=== PATIENT | male | born 1960 | race Caucasian/White ===

== ENCOUNTER 2020-03-10 08:37 | Inpatient (IN) ==
--- NOTE | 2020-02-28 16:14 | Anesthesiology Consultation ---
Date of Service February 28, 2020 Assessment & Plan (1) Encounter for pre-operative examination: Chart Review Chart Review: Acceptable Risk for Surgery (pending Covid testing results ) and Patient NOT seen in Pre Admission Testing Pt resides in [facility]. Will be getting Covid testing through surgeon's office on 03/06/20- will await results before final clearance on patient. History Surgery Operation Date: 03/11/20 09:30 Proposed Procedures p Right Total Knee Arthroplasty, - Flavio Marrero MD s Removal of Deep Screws - Flavio Marrero MD Height/Weight Height: 5 ft 8 in Weight: 68.946 kg Allergies Allergy/AdvReac Type Severity Reaction Status Date / Time celecoxib [From Celebrex] Allergy Mild Rash Verified 02/28/20 13:10 Medications Home Medications Medication Instructions Recorded Confirmed Last Taken fluticasone propionate [Flonase 2 spray INTRANASAL DAILY PRN 12/23/19 02/28/20 Unknown Allergy Relief] ibuprofen 200 - 600 mg PO DAILY PRN 12/23/19 02/28/20 Unknown Past Medical History Medical History Arthritis Past Family History Family History Other No significant family history Past Surgical History Surgical History History of colonoscopy History of surgery LEFT QUAD Hx of arthroscopic knee surgery X3 Hx of shoulder surgery RIGHT ROTATOR CUFF Social History Smoking Status: Current some day smoker tobacco type: cigars Smoking cigarettes per day: WILL SMOKE OCCAS. CIGAR (NOT EVERYDAY) Do You Dip or Chew Tobacco: No Hx Alcohol Use: Yes Alcohol type: beer alcohol intake frequency: 0-2 drinks per day Hx Substance Use: No substance use type: does not use Testing Laboratory Results 02/24/20= WBC: 5.32 H/H: 14.6/42.9 PLATELETS: 215 SODIUM: 137 POTASSIUM: 3.6 CHLORIDE: 101 CO2: 28 BUN: 15 CREATININE: 0.85 GLUCOSE: 78 PT: 9.9 INR: 0.9 UA: Neg Electrocardiogram Date: 12/30/19 Findings: + SB @ (52bpm) RBBB. Chest X-Ray Date: 12/30/19 Findings: + NAD
--- NOTE | 2020-03-06 15:54 | History & Physical Report ---
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 Plan: Postoperative prescriptions for Percocet and Coumadin will be provided at discharge from the hospital. Anticipate discharge to home with home health services. He will have someone stay with him. Preoperative lab work, EKG, and chest x-ray have been obtained. He has also obtained medical clearance from his family doctor, Dr. Leavitt. He has crutches already. Prescription has been provided for a walker. The patient is asymptomatic of any COVID-19 symptoms. He is aware of COVID-19 risks associated with surgery. He has had testing for COVID-19 and results will be made available. History of Present Illness Chief Complaint: Right knee pain Primary Care Provider: Cliff Leavitt MD This 59-year-old white male presents to the office with a longstanding history of right knee pain. He has had numerous previous injuries and surgeries. He developed pain in the fall 2018. He did receive some cortisone injections as well as tried activity modification without improvement. He underwent right knee arthroscopy with chondroplasty and partial medial and lateral meniscectomies in July 2019 at another facility. His pain has become worse since having the knee scope. He is ambulating using a cane. He has tried extensive physical therapy without improvement. He notes occasional swelling in the knee. There is night pain. There is difficulty with motion. He ambulates with an antalgic gait. Pain is worse with weightbearing and is affecting his ADLs. Pain is global but worse medially. Going up and down stairs does aggravate the pain. He elects to proceed with surgical intervention after being educated about potential risks and outcomes. He is scheduled for elective right total knee arthroplasty and removal of deep screws on 03/10/2020. Allergies Allergy/AdvReac Type Severity Reaction Status Date / Time celecoxib [From Celebrex] Allergy Mild Rash Verified 02/28/20 13:10 Home Medications Home Medications Medication Instructions Recorded Confirmed Type fluticasone propionate [Flonase 2 spray INTRANASAL DAILY PRN 12/23/19 02/28/20 History Allergy Relief] ibuprofen 200 - 600 mg PO DAILY PRN 12/23/19 02/28/20 History Past Med/Surg History Medical History (Updated 03/06/20 @ 16:05 by Milton Beck PA-C) Arthritis Colon polyps Epididymitis Hemorrhoids Surgical History (Updated 03/06/20 @ 15:51 by Milton Beck PA-C) History of colonoscopy History of surgery LEFT QUAD Hx of arthroscopic knee surgery X3 Hx of reconstruction of anterior cruciate ligament tear Hx of shoulder surgery RIGHT ROTATOR CUFF Family History Father Hypertension Other No significant family history Social History Preferred Language: Nicaraguan Communication Ability: Effective Lease Administration Supervisor Required: No Beliefs That Will Affect Care: None Current Living Situation: Alone Feels Safe at Home: Yes Safety Concerns: Feels Safe At This Time Smoking Status: Current some day smoker Tobacco Type: cigars ; Cigarettes Per Day: WILL SMOKE OCCAS. CIGAR (NOT EVERYDAY) ; Do You Dip or Chew Tobacco: No ; Second Hand Exposure: No ; Tobacco Cessation Education Requested by Patient: No Hx Alcohol Use: Yes Alcohol type: beer Hx Substance Use: No Review of Systems Review of Systems: A total of 10 systems are reviewed and are significant only for above-stated conditions. Physical Exam Physical Exam: Vitals: Height 171 cm, weight 71 kg, BMI 24.3. Temperature 36.4 oral, BP 138/82, pulse 49, O2 sat 99% on room air. General: Well-developed, well-nourished, middle-aged white male, in no acute distress. Sitting in a chair. Alert and oriented. Skin: Warm and dry with good turgor. No rashes or lesions. No ecchymosis or erythema. No intra-articular effusion. HEENT: Normocephalic, atraumatic. Eyes: PERRLA, EOMI. Nares patent bilaterally without turbinate enlargement. Oropharynx deferred. Heart: RRR, no MGR. Lungs: Clear to auscultation bilaterally, no crackles, rhonchi, or wheezing. Good air movement. Abdomen: Soft, nontender. No organomegaly. No masses. Bowel sounds present x4. Musculoskeletal: Right knee evaluation reveals no intra-articular effusion. Previous incisional scars are noted. Full terminal extension. Flexion to greater than 100 degrees. Strength is 5/5 with good quad tone. Ambulates with an antalgic gait. Stable collateral ligaments. No defect in the patellar tendon or quadriceps tendon. He has focal discomfort with palpation over the medial and lateral joint lines. He is able to perform a straight leg raise. Neurologic: Gross sensation is intact across both lower extremities by soft touch. Peripheral pulses are 2+. Results & Data Results & Data ([facility]) Diagnostic Findings Radiographic imaging previously obtained shows end-stage DJD with lateral tibial subluxation. Subchondral sclerosis and osteophyte formation are also present. Old ACL screws are present.
[~2020-03-10 08:37] MED LIST: BUPIVACAINE 0.5 % 5 MG/1 ML PF 10ML VIAL ONE; CEFAZOLIN 2000MG 2,000 MG/15 ML SYR IV SCH; LR 500ML BOLUS, THEN 15ML/HR IV SCH; LR 60ML/HR IV SCH; ROPIVACAINE 0.5% 5 MG/ML 30 ML VIAL ONE; TRANEXAMIC ACID 1,000 MG **IV Pre-op IV SCH
[2020-03-10] MEDS ORDERED: MIDAZOLAM HCL 1 MG/ML 2ML VIAL ONE ×2 (09:10)
[2020-03-10] MEDS ORDERED: PROPOFOL IV EMULSION 10 MG/ML 20 ML VIAL IV ONE ×2 (09:18→11:26)
[2020-03-10] MEDS ORDERED: fentaNYL citrate 100 MCG/2 ML VIAL ONE (09:18)
[2020-03-10] MEDS ORDERED: ROPIVACAINE 0.5% HCL/PF 150 MG, BUPIVACAINE 0.5% MPF 30 ML, EPINEPHrine 0.15 MG, Ketoro... INFIL SCH (09:30)
--- NOTE | 2020-03-10 09:31 | History & Physical Bridge Note ---
Date of Service March 10, 2020 History & Physical Bridge Note I have examined the patient, reviewed the History & Physical and in the interval since the performance of the History & Physical I have noted the following changes of clinical significance: consent verified/covid test negative.using remote computer to decrease exposure.no changes noted
[2020-03-10] MEDS ORDERED: ONDANSETRON INJ 2 MG/ML 2 ML VIAL IV PRN ×2 (10:28→12:41)
[2020-03-10] MEDS ORDERED: ATROPINE SULFATE 0.1 MG/ML 10ML SYR IV PRN (10:28)
[2020-03-10] MEDS ORDERED: ePHEDrine sulfate 50 MG/ML AMP IV PRN (10:28)
[2020-03-10] MEDS ORDERED: HYDROmorphone INJ 1 MG/ML SYRINGE IV PRN (10:28)
[2020-03-10] MEDS ORDERED: ORTHO JOINT ANESTHETIC ONE (10:53)
[2020-03-10] MEDS ORDERED: ONDANSETRON INJ 2 MG/ML 2 ML VIAL ONE (11:16)
--- NOTE | 2020-03-10 12:37 | Post Operative Brief Note ---
Immediate Post Op Note v1 Date of Surgery March 10, 2020 Pre & Post Diagnosis Operation Date: 03/10/20 11:00 Pre-Op Diagnosis: Right Knee Degenerative Joint Disease Post-Op Diagnosis: Right Knee Degenerative Joint Disease I identified the patient and participated in the time-out.: Yes Procedure Operation Date: 03/10/20 11:00 Actual Procedures p Right Total Knee Arthroplasty with Removal of Deep Screws(Right) - Flavio Marrero MD Surgeon Flavio Marrero MD Assistant [facility] Estimated Blood Loss 50 Findings Consistent with Post-Op Diagnosis
[2020-03-10] MEDS ORDERED: NALOXONE HCL 0.4 MG/1 ML VIAL/CARP IV PRN (12:41)
[2020-03-10] MEDS ORDERED: bisacodyL 10 MG SUPP PR PRN (12:41)
[2020-03-10] MEDS ORDERED: MAGNESIUM HYDROXIDE SUSP 30 ML UDC PO PRN (12:41)
[2020-03-10] MEDS ORDERED: METOCLOPRAMIDE HCL INJ 5 MG/ML 2 ML VIAL IV PRN (12:41)
[2020-03-10] MEDS ORDERED: SODIUM CHLORIDE 0.9% 1000ML 1,000 ML IV SCH (12:45)
--- NOTE | 2020-03-10 12:46 | Operative Report ---
Post Operative Report Pre & Post Diagnosis Operation Date: 03/10/20 11:00 Pre-Op Diagnosis: Right Knee Degenerative Joint Disease Post-Op Diagnosis: Right Knee Degenerative Joint Disease I identified the patient and participated in the time-out.: Yes Procedure Operation Date: 03/10/20 11:00 Actual Procedures p Right Total Knee Arthroplasty with Removal of Deep Screws(Right) - Flavio Marrero MD Surgeon ADELE Marrero MD Dry Starch Supervisor jamie Estimated Blood Loss 50 Findings Consistent with Post-Op Diagnosis Specimens see operative report Drains none Complications none Disposition Accompanied Patient To Recovery: Yes Disposition: Recovery Room Indications This 59 year old white male presented to the office with complaints of intractable Right knee pain. He had tried conservative care measures without improvement. He elected to proceed with total knee replacement in hopes of alleviating his pain. Preoperative imaging was obtained. Description of Procedure Patient was given a spinal anesthetic and then taken to the operating room where he was given sedation. He was prepped and draped in the usual sterile fashion. Please see Dr. Marrero's operative report for specifics of the procedure. I was present for the entire case from initial patient positioning through final wound closure. Assistance was provided in tissue retraction, hemostasis, trial implant placement, final implant placement, and final wound closure. Patient was taken to the recovery room in satisfactory condition. I attest to the content of the Intraoperative Record and any orders documented therein. Any exceptions are noted below.
[2020-03-10] MEDS ORDERED: DiphenhydrAMINE HCL 50 MG/ML VIAL IV PRN (12:52)
[2020-03-10] MEDS ORDERED: ALUMINUM/MAGNESIUM SUSP 30 ML UDC PO PRN (12:52)
[2020-03-10] MEDS ORDERED: OXYCODONE HCL IR 5 MG TAB (IMMEDIATE RELEASE) PO PRN (12:52)
[2020-03-10] MEDS ORDERED: TAMSULOSIN HCL 0.4 MG CAP PO PRN (12:52)
--- NOTE | 2020-03-10 13:02 | XRay Report ---
RIGHT KNEE 2 VIEWS History: Right total knee arthroplasty. Degenerative arthritis. Postop. FINDINGS: The patient is status post a right total knee arthroplasty. The hardware is intact. No frac ture or dislocation. Skin vita are in place. IMPRESSION: Right total knee arthroplasty. No evidence for hardware complication. ACT 112: Negative or not required by law. Electronically signed by: Corby Vargas M.D. 03/10/2020 1:01 PM
--- NOTE | 2020-03-10 13:12 | Anesthesiology Progress Note ---
Date of Service March 10, 2020 Anesthesia Post Procedure Vital Signs Vital Signs: Temp Pulse Pulse Resp BP Pulse Ox 03/10/20 13:10 36.3 C L 48 L 14 120/81 96 03/10/20 13:00 50 L 22 117/82 98 03/10/20 12:50 58 L 22 105/71 97 03/10/20 12:44 36 C L 55 L 13 108/79 98 03/10/20 09:05 36.7 C 57 L 20 133/90 97 Pain Intensity Right Knee: Pain Intensity: 0 Transfer of Care Handoff Completed per policy Notes Mental Status: alert / awake / arousable Patient Amnestic to Procedure: Yes Nausea / Vomiting: adequately controlled Pain: adequately controlled Airway Patency, RR, SpO2: stable & adequate BP & HR: stable & adequate Hydration State: stable & adequate Anesthetic Complications: no major complications apparent
[2020-03-10] MEDS ORDERED: VANCOMYCIN HCL 1,000 MG in SODIUM CHLORIDE 0.9% 500 ML IV ONE (13:15)
--- NOTE | 2020-03-10 13:24 | Progress Notes ---
DATE: 03/10/2020 He is status post right total knee replacement removal femoral screw. The patient is sitting up in bed, is comfortable. Has no chest pain, shortness of breath, fever, chills, nausea, vomiting or headache. His spinal is wearing off. His femoral sciatic nerve function is limited but displaying trace function.. Wound dressing clean, dry and intact. Postop x-rays, AP and lateral of the knee have some projection malrotation on the lateral view but looks acceptable. No sign of any fracture and small radiolucent line noted on the posterior and the lateral tibia, likely based on bone impaction from a retractor. ASSESSMENT: Overall doing well, has no immediate issues postop. We will continue with postop care pathway, DVT prophylaxis with Coumadin. Tried to contact family, brother, Jose, multiple times. Used multiple numbers with no success; informed the patient. ALEXIS
[2020-03-10] MEDS ORDERED: FLUTICASONE PROPIONATE NA SPR 16 GM BTL NAE PRN (13:51)
[2020-03-10] MEDS: ORTHO WARFARIN NOMOGRAM SCH (14:21)
[2020-03-10] MEDS: ACETAMINOPHEN 500 MG TAB PO SCH ×2 (14:31→22:16)
[2020-03-10] MEDS ORDERED: WARFARIN SOD 5 MG TAB PO SCH (16:00)
[2020-03-10] MEDS: KETOROLAC 30 MG/ML VIAL IV SCH ×2 (17:03→22:16)
[2020-03-10] MEDS ORDERED: TRANEXAMIC ACID / 0.7% NACL 1,000 MG/100 ML BAG IV SCH (19:00)
[2020-03-10] MEDS: DOCUSATE SODIUM 100 MG CAP PO SCH (20:58)
[2020-03-10] MEDS: CEFAZOLIN 2000MG 2,000 MG/15 ML SYR IV SCH (20:58)
[2020-03-10] MEDS ORDERED: SENNA 8.6 MG TAB PO SCH (21:00)
[2020-03-11] MEDS: CEFAZOLIN 2000MG 2,000 MG/15 ML SYR IV SCH (03:50)
[2020-03-11] MEDS: KETOROLAC 30 MG/ML VIAL IV SCH ×2 (03:50→10:16)
[2020-03-11] MEDS: ACETAMINOPHEN 500 MG TAB PO SCH (05:17)
--- NOTE | 2020-03-11 06:41 | Progress Notes ---
DATE: 03/11/2020 SUBJECTIVE: Postop day #1 status post right total knee replacement. The patient had an uneventful night. He denies any chest pain, shortness of breath, fever, chills, nausea, vomiting or headache. OBJECTIVE: Vital signs are stable. He is afebrile. Wound dressing clean, dry and intact. Neurovascular check femoral sciatic nerve is normal. Can do a straight leg raise. Can bend easily to 60 degrees. ASSESSMENT: Doing well, a.m. labs pending. Discharge today. Discharge on Coumadin dose per INR result. If less than 1.4, discharge on 4 mg a day. Check INR on Monday due to the holiday.
--- NOTE | 2020-03-11 06:44 | Discharge Summary (DS) ---
CHIEF COMPLAINT: Right knee pain. HISTORY OF PRESENT ILLNESS: Underwent elective right total knee replacement. Surgical procedure and hospital course has been uneventful. At this point, he will be discharged to home on 03/11/2020. Weightbearing as tolerated. PAST MEDICAL HISTORY: Remarkable for arthritis, epididymitis, hemorrhoids, colon polyps. PAST SURGICAL HISTORY: Includes multiple knee arthroscopies, ACL reconstruction, rotator cuff surgery required surgery on the left. FAMILY HISTORY: Has hypertension in his family. No other problems. SOCIAL HISTORY: Reveals he is . He lives alone. He does have family that will help him over the next several weeks. Does admit to having some tobacco use. Alcohol socially. No other substances. ASSESSMENT: Status post right total knee replacement. At this point, he will be discharged to home. Follow up in 2 weeks for staple removal. Coumadin, keep INR 1.8-2.2.
[2020-03-11 06:54] LABS: Hematocrit (blood only) 32.3 % (42-52); Hemoglobin 11.2 g/dL (14.0-18.0); Mean Corpuscular Hemoglobin 32.1 pg (25-34); Mean Corpuscular Hgb Conc 34.7 g/dL (32-36); Mean Corpuscular Volume 92.6 fL (80-100); Mean Platelet Volume 10.3 fL (7.4-10.4); Platelet Count 145 K/uL (130-400); RDW Coefficient of Variation 13.1 % (11.5-14.5); RDW Standard Deviation 43.9 fL (36.4-46.3); Red Blood Count 3.49 M/uL (4.7-6.1); White Blood Count 7.27 K/uL (4.8-10.8)
[2020-03-11 07:04] LABS: Prothrombin Time 10.8 Seconds (9.0-12.0)
[2020-03-11 07:10] LABS: BUN Creatinine Ratio 14.2 (10-20); Calcium 8.4 mg/dl (8.5-10.1); Creatinine Clr Calc Pharmacy 102.5 ml/min; Est GFR (African American) 116.6; Est GFR (Non-African American) 100.6; Potassium 4.4 mmol/L (3.5-5.1)
[2020-03-11 07:17] VITALS: BP 120/71; PULSE 61; TEMP 98.2; O2SAT 97
[2020-03-11] MEDS ORDERED: dexAMETHasone 10 MG in SYRINGE 0 ML IV SCH (08:00)
[2020-03-11] MEDS: DOCUSATE SODIUM 100 MG CAP PO SCH (08:46)
[2020-03-11] MEDS ORDERED: MULTIVITAMIN TAB PO SCH (09:00)
[2020-03-11] MEDS ORDERED: WARFARIN SOD 5 MG TAB PO ONE (10:15)
[2020-03-11] MEDS: ORTHO WARFARIN NOMOGRAM SCH (10:47)
--- NOTE | 2020-03-12 09:10 | Operative Report (OR) ---
DATE OF OPERATION: 03/10/2020 PREOPERATIVE DIAGNOSES: Severe osteoarthritis, right knee with varus and flexion deformity. POSTOPERATIVE DIAGNOSES: Severe osteoarthritis, right knee with varus and flexion deformity. OPERATION PERFORMED: Cemented right total knee replacement. ESTIMATED BLOOD LOSS: 50 mL or less. PATHOLOGY: Pending on bone. SUMMARY OF IMPLANTS: DePuy J and J rotating platform size 3, 12.5 mm posterior cruciate substituting femoral tibial spacer and a size 35 patella. Two bags of Palacos G cement. Injectable periarticular provided. DVT prophylaxis postop with Coumadin. DESCRIPTION OF PROCEDURE: Please see summary of implants noted above. Midline exposure was utilized. Total tourniquet time was roughly 50 minutes. An exsanguination of limb with a rubber Esmarch bandage. Tourniquet inflated to 300 mmHg. Midline exposure utilizing the old incision. Parapatellar type was made. Full thickness flaps raised. Arthrotomy performed. Patella was everted. A subperiosteal dissection performed of the medial tibia. There was grade 4 disease throughout the entire knee joint. There were loose bodies removed. The extensor mechanism was slightly encased. This was removed. The knee was then easily flexed. There was no ACL left. The entire notch was closed then with osteophytes. This was resected. The PCL was identified. The distal femur was then entered. Distal femur was then resected 14 mm. Proximal tibia was then subluxated. The remaining meniscal remnants excised. There was grade 4 disease throughout the entire knee. There was lateral subluxation of the tibia. Care taken to protect the peroneal nerve. The tibia was resected. The extension gap was excellent. Femur was sized between a size 4 and a size 3, was measured 4 cut 3. No notching occurred. The flexion gap was then checked, it was excellent. The box cut was then attempted to be made but the old ACL screw was then localized. It was then removed with no issue. The size 3 trial fit well. The tibia was then broached and reamed. At no time was there any interference from the tibial screw. The patella was then resected leaving 15 mm and a 35 patella button placed. There was good tracking. Once this was done, the periarticular injection was then placed anteriorly and posteriorly. Trial implants were then removed. The wound irrigated with Betadine and Pulsavac and then the permanent implants then cemented into position, tibia followed by femur followed by patella. After 12 minutes, the tourniquet deflated. After 14 minutes, the knee was then flexed and no cement removal was required. The wound was irrigated one final time with Betadine Pulsavac and the permanent liner seated and then the knee reduced and the knee closed at 60 degrees of flexion with #2 Vicryl for the capsule layer, 2-0 Vicryl for the subcutaneous layer and stainless steel clips for skin. Appropriate dressing applied. The patient transferred to recovery room in satisfactory condition having tolerated the procedure well. Again Pathology pending on bone. ESTIMATED BLOOD LOSS: Roughly 50 mL SUMMARY OF IMPLANTS: Size 3 posterior cruciate substituting femur, size 3 tibial tray, size 3 spacer, posterior cruciate substituting 12.5 mm thick and an oval dome 3-peg patella, size 35, 2 bags of Palacos G cement. DVT prophylaxis with Coumadin. I attest to the content of the Intraoperative Record and any orders documented therein. Any exception s are noted below.
== END 2020-03-11 11:12 | disposition home or self-care (01) | DRG 470 ==
LOC: ASU 08:37 → 3E 12:41
DX: M17.11 Unilateral primary osteoarthritis, right knee